=== PATIENT | female | born 1985 | race Caucasian/White ===

== ENCOUNTER 2020-06-03 07:47 | Outpatient (CLI) | payer OTHER, SELFPAY ==
[2020-06-03 08:59] LABS: Hematocrit 42.4 % (37.0-47.0); Hemoglobin 14.6 g/dL (12.0-15.0); Mean Corpuscular HGB Conc 34.4 g/dl (32-36); Mean Corpuscular Hemoglobin 31.6 pg (26-34); Mean Corpuscular Volume 91.8 fl (80-100); Mean Platelet Volume 10.5 fl (7.4-10.4); Platelet Count Result 194 k/mm3 (150-375); Red Blood Count 4.62 M/mm3 (4.2-5.4); Red Cell Distribution Width 12.5 % (11.5-14.5); White Blood Count 5.2 K/mm3 (4.5-10.0)
[2020-06-03 09:10] LABS: Alanine Aminotransferase 18 U/L (4-35); Albumin Level 4.6 g/dL (3.5-5.1); Alkaline Phosphatase 66 U/L (38-126); Anion Gap 6 mmol/L (8-16); Aspartate Amino Transferase 30 U/L (14-36); Bilirubin,Total 0.8 mg/dL (0.2-1.3); Blood Urea Nitrogen 14 mg/dL (7-17); Calcium 9.4 mg/dL (8.4-10.2); Carbon Dioxide 32 mmol/L (22-30); Chloride 98 mmol/L (98-107); Cholesterol 245 mg/dL (0-200); Estimated Glomerular Filt Rate > 60; Glucose 95 mg/dL (65-105); HDL Direct 64 mg/dL; Potassium 3.6 mmol/L (3.4-5.0); Sodium 136 mmol/L (137-145); Triglycerides 70 mg/dL (<150)
[2020-06-03 09:22] LABS: LDL Cholesterol Direct 158 mg/dL
[2020-06-03 09:43] LABS: Thyroid Stimulating Hormone 0.905 uIU/mL (0.465-4.680)
[2020-06-03 10:44] LABS: Vitamin D 25 Hydroxy 20.1 ng/mL
== END 2020-06-03 07:48 | disposition home or self-care (01) ==
LOC: ANHLAB 07:51
PROVIDERS: PCP Physician Assistant; Visit Provider Physician Assistant
DX: I10 Essential (primary) hypertension (principal); Z00.00 Encounter for general adult medical examination without abnormal findings
CPT/HCPCS: 36415; 80053; 80061; 82306; 84443; 85027

== ENCOUNTER 2025-01-16 09:11 | Outpatient (CLI) | payer OTHER, SELFPAY ==
--- NOTE | ~2025-01-16 | US_ITS ---
EXAM: US abdomen limited - 01/16/2025 9:12 CDT History: 39 years old Female with R10.11 - Right upper quadrant pain TECHNIQUE: Ultrasound of the abdomen was performed. COMPARISON: None available. FINDINGS: LIVER: Normal echogenicity. 1.1 x 1.1 x 0.8 cm simple cyst in the left hepatic lobe. No discrete liver masses are noted. INTRAHEPATIC BILE DUCTS: Nondilated. COMMON BILE DUCT: 4 mm. Normal caliber. GALLBLADDER: Cholelithiasis without evidence of gallbladder wall thickening or pericholecystic fluid. The gallbladder was not tender to transducer palpation. PANCREAS: Visualized portions are normal. ASCITES: None. OTHER: Patient IVC IMPRESSION: Cholelithiasis. Left hepatic cyst. Reviewed, dictated and finalized at location A.
== END 2025-01-16 09:12 | disposition home or self-care (01) ==
LOC: MICIMG 09:11
PROVIDERS: PCP Nurse Practitioner; Visit Provider Nurse Practitioner
DX: K80.20 Calculus of gallbladder without cholecystitis without obstruction (principal); K76.89 Other specified diseases of liver
CPT/HCPCS: 76705

== ENCOUNTER 2025-02-11 14:24 | Outpatient (CLI) | payer OTHER, SELFPAY ==
--- NOTE | 2025-02-11 14:36 | ECG_ITS ---
Test Date: 2025-02-11 14:47:14 Measurements Intervals [place] Rate: 82 P: 32 VA: 168 QRS: 19 QRSD: 77 T: 29 QT: 353 QTc: 414 Interpretive Statements SINUS RHYTHM WITH SINUS ARRHYTHMIA NONSPECIFIC T-WAVE ABNORMALITY ABNORMAL ECG WARNING: DATA QUALITY MAY AFFECT INTERPRETATION No previous ECG available for comparison Electronically Signed On 02-11-2025 17:19:20 CDT by Kiran Martin M.D.
[2025-02-11 15:04] LABS: Alanine Aminotransferase 20 U/L (6-35); Albumin Level 4.5 g/dL (3.5-5.1); Alkaline Phosphatase 68 U/L (38-126); Amylase 72 U/L (30-110); Anion Gap 9 mmol/L (4-12); Aspartate Amino Transferase 27 U/L (14-36); Bilirubin,Total 0.3 mg/dL (0.2-1.3); Blood Urea Nitrogen 14 mg/dL (7-17); Calcium 8.9 mg/dL (8.4-10.2); Carbon Dioxide 26 mmol/L (22-30); Chloride 102 mmol/L (98-107); Estimated Glomerular Filt Rate > 60; Glucose 97 mg/dL (65-110); Lipase 71 U/L (23-300); Potassium 3.8 mmol/L (3.4-5.0); Sodium 137 mmol/L (137-145); Total Protein 7.6 g/dL (6.3-8.2)
== END 2025-02-11 14:25 | disposition home or self-care (01) ==
LOC: ANHSURGERY 14:25
PROVIDERS: Anesthesiology; PCP Nurse Practitioner; Visit Provider Surgery
DX: K80.20 Calculus of gallbladder without cholecystitis without obstruction (principal); I10 Essential (primary) hypertension; Z79.899 Other long term (current) drug therapy; R94.31 Abnormal electrocardiogram [ECG] [EKG]
CPT/HCPCS: 36415; 80048; 80076; 82150; 83690; 86850; 86900; 86901; 93005

== ENCOUNTER 2025-02-17 01:17 | Day surgery (SDC) | payer OTHER, SELFPAY ==
[2025-02-07 08:27] VITALS: BMI 32.1
--- NOTE | 2025-02-07 08:52 | PC.NURSE ---
Report to the Outpatient Waiting Room, entrance under the green pavilion located off [facility], at time _1130 on date __02/17/25 . Planned Procedure Time: __1330 .? Time changes happen often and if your time is changed the preop area will call you the afternoon before. - You and your visitor will be asked to self-screen and do not enter if you have any COVID symptoms. Please call surgeon if you need to reschedule. - A mask is optional within the hospital at this time. Patients may have clear liquids (water, carbonated beverages, clear teas, apple juice) until 3 hours prior to surgery with a maximum of 20 ounces. - No food from midnight until time of surgery and no smoking, or chewing tobacco (or any form of nicotine). No chewing gum, candy or mints. - Infants may have breast milk until 4 hours before surgery, formula 6 hours prior to surgery. - Children will be allowed to drink immediately following surgery.? If applicable, please bring a bottle or sippy cup to assist with drinking. Juice, water, soda, and popsicles are readily available.? For infants on formula, please bring formula the day of surgery.? Pacifiers are allowed. Take only the following medications with a SIP of water on the morning of surgery: _Sertraline DO NOT STOP ANY OF YOUR OTHER PRESCRIPTION MEDICATIONS PRIOR TO SURGERY EXCEPT THE FOLLOWING Hold all vitamins and supplements for 3 days per anesthesiologist. Medications to discontinue per physician ___N/A Date to take last dose___N/A Please no make-up, nail armenian, hairspray, perfume, deodorant, or body powder the day of surgery.? No jewelry (including any body piercings) or valuables the day of surgery, leave them at home.? Please take a shower or bath the night before, or the morning of, surgery with an antibacterial soap.? Wear comfortable, loose fitting clothing.? Children are encouraged to wear pajamas. - Jewelry must be removed prior to entering the operating room.? Rings and piercings that are not removed may be cut off. - The hospital will not accept responsibility for valuables.? - Please leave all valuables, including medications, at home the day of surgery. If you are going home after surgery, a licensed jinriksha driver must drive you home.? - NO public transportation without another adult if you receive anesthesia. - We recommend that an adult stay with you for 24 hours following discharge. - We also recommend that you do not drive, make important decision, drink alcoholic beverages, or take any drugs that were not prescribed by your health care provider for at least 24 hours after your discharge time. For Pediatric surgeries, we recommend two adults accompany the child home. Follow any additional instructions given to you from your surgeon. Telephone instructions given to __Melissa and asked if any additional questions and then verbalized understanding. Patient advised to call surgeon office or pre surgery nurse liaison [phone] if any additional questions.
[2025-02-17] VITALS (9 sets, daily range): BP systolic 102–142; BP diastolic 59–100; PULSE 74–99; RESP 10–16; TEMP 36.6–36.9; O2SAT 96–100
[2025-02-17] MEDS: ACETAMINOPHEN 500 MG TABLET 1000 MG PO (12:15)
[2025-02-17] MEDS: LACTATED RINGERS 1,000 ML 30 ML IV CONT ×2 (12:20→14:41)
[2025-02-17] MEDS: KETOROLAC 15 MG/ML VIAL (*BKC) IV PUSH (12:25)
[2025-02-17] MEDS: INDOCYANINE GREEN 25 MG VIAL WITH DILUENT 3.75 MG IV PUSH (12:30)
--- NOTE | 2025-02-17 12:31 | WPDANESEPPF ---
Anes - Initial Pre Proc Eval Procedure: Operation Date: 02/17/25 13:30 Proposed Procedures p Robotic Cholecystectomy - Clem Herzog DO Date/Time: 02/17/25 12:31 Surgeon: Clem Herzog DO Pre Op Diagnosis: Sym Cholelithiasis Patient Data Age: 39 Gender: F Height: 1.55 m Weight: 77.1 kg Allergies Allergy/AdvReac Type Severity Reaction Status Date / Time No Known Allergies Allergy Mild Verified 02/07/25 08:26 Home Medications ?Medication ?Instructions ?Recorded ?Confirmed ?Type triamterene 37.5 1 tablet PO QAM #90 tabs 11/08/24 02/07/25 Rx mg-hydrochlorothiazide 25 mg tablet sertraline 100 mg tablet 100 mg PO DAILY #90 tabs 12/24/24 02/07/25 Rx Patient hx anesthesia problems: none Family hx anesthesia problems: none Results Review: All pre-operative results and documents have been reviewed as part of the pre-operative evaluation. [facility] Past Medical History Medical History section wound complication Hypertension Anxiety RLQ abdominal pain Lymphadenitis Hypokalemia Hydronephrosis Essential (primary) hypertension Adult general medical exam Dietary counseling and surveillance (06/12/15) Cough Body mass index [BMI] 27.0-27.9, adult (09/08/17) Body mass index [BMI] 26.0-26.9, adult (06/21/18) Acute pharyngitis delivery delivered Family History Family History Father Hypertension Mother Hypertension Grandparent Family history of Alzheimer's disease Son Type 1 diabetes Other Family history of malignant neoplasm of breast Social History Social History Smoking status: Never smoker Second hand tobacco smoke exposure: No Alcohol intake: current Drinks per week: 2 Alcohol use details: beer Substance use: unknown Lack of Transportation: No Lack of Food: Never True Current Housing: I Have Housing Concerned About Future Housing: No Difficulty Paying Gas/Electric Bills: No Difficulty Paying for Meds: No Currently Unemployed: No Education: Associate Degree Difficulty w/ Childcare or Family Care: No Living arrangements: with family Occupation/Education: occupation Additional occupation/education comments: [employer] Spiritual care concerns: No Anes - Eval Final PreProcedure Day of Procedure 02/17/25 12:31 Patient weight: normal Lungs: normal air movement Airway: Mallampati scale class II Neurological: alert and oriented Last oral intake: >/= 8 hours ASA classification: II Emergent: no Anesthetic plan: proceed Anesthesia type and monitoring: general ETT and standard monitoring Results Review: All pre-operative results and documents have been reviewed as part of the pre-operative evaluation. 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 Informed Consent: The patient's anesthetic plan and its attendant risks and benefits were discussed with the patient/family/POA. Questions were solicited and answers provided to the satisfaction of the patient/family/POA.
[2025-02-17 12:52] LABS: BEDSIDEPREGUCG Negative (Negative)
--- NOTE | 2025-02-17 13:10 | WPDHPUPDATE1 ---
History and Physical Update Update Date/Time: 02/17/25 13:10 History and Physical has been reviewed, including an updated exam of the patient. There are NO changes in the patient's condition. Risks, benefits, and alternatives have been discussed and questions answered. Patient agrees to proceed with procedure.
[2025-02-17] MEDS: ceFAZolin 2 GM in SODIUM CHLORIDE 0.9% IV 50 ML 100 ML IVPB (13:33)
[2025-02-17] MEDS: BUPIVACAINE/EPINEPHRINE 0.5% 50 ML VIAL 30 ML INFILTRATE (14:04)
--- NOTE | 2025-02-17 14:23 | S_PTH ---
PATIENT: Melissa Martin LOC: [facility] U#:[id number] AGE/SX: 39/F ROOM: RE02/17/[address]: Clem Herzog DO : 1985 BED: DIS: 02/17/2025 SPEC #: [id number] RECD: 02/18/25 07:19 STATUS: QASIM REQ #: [id number] AMADA: 02/17/25 14:[address]: Clem Herzog DEPT: [facility] Surgical RECD BY: Mehrdad Avilez ENTERED: 02/18/25 07:20 SP TYPE: Surgical OTHR DR: Bennie Ng APRN Tissues: A - Gallbladder Procedures: Hematoxylin and Eosin Stain Gross and Microscopic Level 3
--- NOTE | 2025-02-17 14:40 | P.OP_ITS ---
Procedure Note - Detailed Date of Procedure 02/17/25 Pre-op Diagnosis Symptomatic cholelithiasis Post-op Diagnosis Same Procedure Performed 1. Laparoscopic cholecystectomy with cholangiography, da Jose Juan assisted 2. Interpretation of cholangiography Surgeon Clem Herzog DO Anesthesia General and Local (0.5% bupivacaine) Indications This is a 39-year-old woman who presented with intermittent right upper quadrant pain over the past several months. This typically happened at night. She had not identified any particular foods that were causing her symptoms. An ultrasound was performed which showed evidence of cholelithiasis. Discussions were made with the patient about treatment options and decision was made to proceed with robotic assisted laparoscopic cholecystectomy with cholangiography. Findings Robotic assisted laparoscopic cholecystectomy with cholangiography was performed. 1.5 mL of indocyanine green was given intravenously in preop. Near infrared fluorescence imaging was utilized to help identify the biliary anatomy intraoperatively. The cystic duct was clearly identified lateral to the common bile duct and common hepatic duct. This allowed for safe dissection around the cystic duct and creating our critical view of safety. There were a few pericholecystic adhesions around the body and neck of the gallbladder. The gallbladder contained multiple small gallstones. No other significant abnormalities were noted. The gallbladder was removed and sent to the lab for pathology. Description of Procedure Procedure as well as risks, benefits, and alternatives were discussed with the patient. Written consent was obtained and placed in chart prior to procedure. 1.5 mL of indocyanine green was given intravenously in preop. Patient was brought back to surgical suite. She was placed supine on operating table. Time-out was done to confirm patient and procedure. She was then intubated by the anesthesia department. Her abdomen was then prepped and draped in sterile fashion using chlorhexidine prep. 0.5% bupivacaine was infiltrated locally at the site of each port placement. An 8 mm incision was made in the left upper quadrant and a 5 mm Optiview trocar was then advanced through the abdominal layers under direct visualization. Once inside the abdominal cavity, carbon dioxide insufflation was used to create a pneumoperitoneum. The camera was inserted and the abdomen was inspected. No mediated abnormalities were noted. The patient was placed in 12? reverse Trendelenburg position and rotated 6? to the left. Two 8 mm incisions were made in the right lateral abdomen and 2 8 mm trocars were inserted under direct visualization. An 8 mm incision was made in the supraumbilical region and an 8 mm trocar was inserted under direct visualization. The 5 mm Optiview trocar was then removed and another 8 mm trocar was inserted in its place. The robotic arms were then brought up to the patient's bedside and secured to each port. The camera and instruments were inserted. I then moved over to the robotic consult to take control of the camera and instruments. The gallbladder was grasped at the fundus and retracted cephalad. The infundibulum of the gallbladder was then grasped and retracted laterally. Hook electrocautery was then used to carefully dissect around the neck of the gallbladder. The cystic duct was identified and a window was created around it using hook electrocautery. The cystic artery was also identified and a window was created behind it using hook electrocautery. Critical view of safety was identified visualizing the cystic duct running directly into the neck of the gallbladder and the cystic artery running directly into the wall the gallbladder. The camera view was switched to firefly mode and the indocyanine green within the gallbladder and cystic duct was clearly visualized. No other structures were noted running into this region and there did not appear to be any obstruction of the cystic duct impeding flow of bile into the gallbladder. The camera mode was switched back to regular mode. Hemo lock clips were placed on both the cystic duct and cystic artery. Two clips were placed proximally and 1 distally. Hook electrocautery was then used to transect in between the clips. Once safely away from the giovanna hepatus, hook electrocautery was used to dissect the gallbladder off of the liver bed. Once the gallbladder was completely dissected free it was then placed in an Endo- Catch bag and removed through the left upper quadrant port site. The liver bed was carefully inspected. Hemostasis appeared adequate under clips appeared secure. No other intra-abdominal abnormalities were noted. A Sourav cone was then used to approximate the fascia of the left upper quadrant port using an 0 Vicryl suture. The remaining instruments and camera were removed and the robotic arms were disengaged from the ports. Pneumoperitoneum was released and the ports were removed. The skin of each of the incisions was then approximated using 4-0 Monocryl subcuticular suture. Exofin glue was then applied on top. Patient was then awakened from anesthesia, extubated, and transferred to recovery. Estimated Blood Loss 5 Pathology Yes (Gallbladder) Complications No immediate complications Condition Stable Disposition Same day [facility] Billing Surgery - Charge Forward: Surgery Billing
[2025-02-17] MEDS: fentaNYL CITRATE INJ (*CRX) 100 MCG/2 ML VIAL 25 MCG IV PUSH ×2 (15:10→15:15)
[2025-02-17] MEDS: oxyCODONE HCL (*CRX) 5 MG TAB IR PO (16:17)
== END 2025-02-17 16:50 | disposition home or self-care (01) ==
PROVIDERS: Anesthesiology; PCP Nurse Practitioner; Visit Provider Surgery
PROC: 0FT44ZZ Resection of Gallbladder, Percutaneous Endoscopic Approach (ICD-10-PCS; CPT 47562; principal; 2025-02-17 13:30)
DX: K81.1 Chronic cholecystitis (principal); K66.0 Peritoneal adhesions (postprocedural) (postinfection); I10 Essential (primary) hypertension; F41.9 Anxiety disorder, unspecified; E87.6 Hypokalemia; Z79.899 Other long term (current) drug therapy; Z80.3 Family history of malignant neoplasm of breast
CPT/HCPCS: 47563; 74300; S2900; 88304; J0690; A9270; J1100; J1596; J1885; J2003; J2250; J2371; J2405; J2704; J3010; J7030; J7120

== ENCOUNTER 2025-04-07 16:09 | Emergency (ER) | payer OTHER, SELFPAY ==
--- NOTE | 2025-04-07 16:18 | ED_ITS ---
HPI - Allergic Reaction General Chief complaint: Skin/Abscess/Foreign Body Stated complaint: Allergic Reaction Time Seen by Provider: 04/07/25 16:22 Source: patient Mode of arrival: ambulatory Limitations: no limitations History of Present Illness HPI narrative: Melissa is a 39-year-old female patient presenting to the clinic today with complaints of possible allergic reaction. Reports last night she developed some swelling in her lips and now has a red raised itchy rash all over her body. She denies any changes in environment-soaps, shampoos, detergents, lotions, foods, or medications. Has taken some Benadryl and this help with the itching and some of the lip swelling. Also took some ibuprofen. Denies any difficulty swallowing, tongue swelling, difficulty breathing, or chest pain. Does take trameterene /HCTZ for high blood pressure and zoloft for depression. Related Data Allergies Allergy/AdvReac Type Severity Reaction Status Date / Time No Known Allergies Allergy Mild Verified 04/07/25 16:14 Review of Systems Review of Systems: Pertinent positives per HPI. Patient denies any fever, chills, rash, headache, visual changes, dizziness, cough, shortness of breath, chest pain, palpitations, nausea, vomiting, diarrhea, constipation, abdominal pain, or any urinary issues. [facility] Past Medical History Medical History (Updated 04/07/25 @ 16:24 by Johnson Carpenter APRN) section wound complication Hypertension Anxiety RLQ abdominal pain Lymphadenitis Hypokalemia Hydronephrosis Essential (primary) hypertension Adult general medical exam Dietary counseling and surveillance (06/12/15) Cough Body mass index [BMI] 27.0-27.9, adult (09/08/17) Body mass index [BMI] 26.0-26.9, adult (06/21/18) Acute pharyngitis delivery delivered Surgical History Surgical History (Updated 02/28/25 @ 09:03 by Vale Iverson MA) Hx laparoscopic cholecystectomy robo lap davy 02/17 Dr. Clem Herzog MD Family History Family History Father Hypertension Mother Hypertension Grandparent Family history of Alzheimer's disease Son Type 1 diabetes Other Family history of malignant neoplasm of breast Social History Social History Second hand tobacco smoke exposure: No Alcohol intake: current Drinks per week: 2 Alcohol use details: beer Substance use: unknown Lack of Transportation: No Lack of Food: Never True Current Housing: I Have Housing Concerned About Future Housing: No Difficulty Paying Gas/Electric Bills: No Difficulty Paying for Meds: No Currently Unemployed: No Education: Associate Degree Difficulty w/ Childcare or Family Care: No Living arrangements: with family Occupation/Education: occupation Additional occupation/education comments: [employer] Spiritual care concerns: No Comments At the time of my signature, I reviewed and agree with the nursing past medical, surgical, social, and family history. There is no relevant family history pertinent to the patient complaint. Exam Narrative: General: Well-developed, well nourished, in no apparent distress Head: Normocephalic, atraumatic Eyes: Pupils equally round and reactive to light bilaterally, EOM intact, sclera and conjunctive clear, no discharge, lids normal Ears: TMs intact and clear, ear canals clear, no drainage, grossly hearing normal. Nose: Nares patent, no discharge, no inflammation, no sinus tenderness. Mouth: Oral pharynx without lesions or masses, good dentition, MMM. Neck: Supple, trachea midline, no enlargement of anterior or posterior cervical nodes, no thyroid masses or goiter palpable. Cardio: Tachycardic- Regular rate and rhythm, s1 and s2 normal, no murmur appreciated. Resp: Clear to auscultation bilaterally, no rhonchi, rales, wheezing or rubs Integumentary: [place], warm, and dry, intact without lesion, red, raised, hive- like rash to arms, chest, back, legs, neck, and buttocks Course Course Emergency Course: Portions of this record may have been created with voice recognition software. Level of Care: Express Care Visit Vital Signs Vital signs: Vital Signs Temperature 36.3 C L 04/07/25 16:20 Pulse Rate 110 H 04/07/25 16:20 Respiratory Rate 18 04/07/25 16:20 Blood Pressure 147/99 H 04/07/25 16:20 Pulse Oximetry 98 04/07/25 16:20 Oxygen Delivery Room Air 04/07/25 16:20 Temperature 36.3 C L 04/07/25 16:20 Pulse Rate 110 H 04/07/25 16:20 Respiratory Rate 18 04/07/25 16:20 Blood Pressure 147/99 H 04/07/25 16:20 Pulse Oximetry 98 04/07/25 16:20 Oxygen Delivery Room Air 04/07/25 16:20 Vital signs reviewed MDM - Allergic Reaction MDM Narrative Medical decision making narrative: At the time of visit patient is resting comfortably on the exam table. Patient appears to be nontoxic. Complaints of possible allergic reaction. Reports last night she developed some swelling in her lips and now has a red raised itchy rash all over her body. She denies any changes in environment-soaps, shampoos, detergents, lotions, foods, or medications. Has taken some Benadryl and this help with the itching and some of the lip swelling. Also took some ibuprofen. Denies any difficulty swallowing, tongue swelling, difficulty breathing, or chest pain. Does take triamterene/HCTZ for high blood pressure and zoloft for depression. On exam patient has mild lip swelling, no tongue swelling, oropharynx normal, no nasal drainage, red raised hive-like rash to arms, legs, chest, back, abdomen, neck, and buttocks, heart rates tachycardic regular rate and rhythm, lung sounds are clear. Dexamethasone 10 mg IM ordered. Plan: I suspect patient has allergic reaction/hives. Dexamethasone 10 mg IM given in the clinic. Will send in prescription for prednisone taper dose and Pepcid. If you develop any shortness of breath, difficulty swallowing, difficulty breathing, respiratory distress, or any other concerning symptoms recommend going to the emergency room immediately. Supportive measures were discussed with the patient and they voiced understanding discharge instructions and agrees to treatment plan. Return precautions reviewed Differential Diagnosis Differential diagnosis: Likely anaphylaxis, allergic reaction, angioedema, contact dermatitis, adverse reaction to drug, viral enanthem and urticaria Discharge Plan Discharge Clinical Impression: Acute urticaria Allergic reaction Qualifiers: Encounter type: initial encounter Qualified Code(s): T78.40XA - Allergy, unspecified, initial encounter Patient Disposition: Home Condition: Stable Instructions: Antibiotic Form, Urticaria (ED), General Allergic Reaction (ED) Additional Instructions: Dexamethasone 10 mg IM given in the clinic today. Take Pepcid 40 mg daily as prescribed Take prednisone as directed- start tomorrow morning -04/07/25 May take Zyrtec 10mg or Claritin 10 mg daily Avoid hot showers Avoid scratching as this can cause a secondary infection May take Benadryl 25-50mg every 6 hours as needed for itching/swelling. Follow up with your PCP in 3-5 days if symptoms persist or sooner if they worsen Go to the Emergency Room if symptoms worsen- fever, rash spreading with treatment, difficulty swallowing, shortness of breath, tongue swelling, drooling, or chest pain Patient Language: Indonesian Prescriptions: New prednisone 10 mg tablet 10 mg PO DAILY Qty: 30 0RF Rx Instructions: 60mg po daily on day 1, 40mg po daily on days 2-4, 30mg po daily on days 5-6, 20mg po daily on days 7-8, 10mg po daily on days 9-10 famotidine [Pepcid] 40 mg tablet 40 mg PO DAILY 10 Days Qty: 10 0RF No Action triamterene-hydrochlorothiazid 37.5-25 mg tablet 1 tablet PO QAM Qty: 90 3RF sertraline 100 mg tablet 100 mg PO DAILY Qty: 90 1RF Follow-up/Referrals: Bennie Ng APRN [Primary Care Provider, Internal Medicine] Time of Disposition: 16:30 Quality NIHSS Nursing Documentation ED NIHSS nursing documentation: reviewed/agree
[2025-04-07 16:20] VITALS: BP 147/99; PULSE 110; RESP 18; TEMP 36.3; O2SAT 98
[2025-04-07] MEDS: dexAMETHasone SOD PHOS INJ 10 MG/ML 1 ML VIAL IM (16:30)
== END 2025-04-07 16:34 | disposition home or self-care (01) ==
PROVIDERS: Emergency Provider Nurse Practitioner Family; PCP Nurse Practitioner
DX: L50.9 Urticaria, unspecified (principal); T78.40XA Allergy, unspecified, initial encounter; I10 Essential (primary) hypertension; F32.A Depression, unspecified; F41.9 Anxiety disorder, unspecified
CPT/HCPCS: 96372; 99213; G0463; J1100